=== PATIENT | female | born 1970 | race Caucasian/White ===

== ENCOUNTER 2020-07-27 07:42 | Emergency (ER) | payer SELFPAY ==
[2020-07-27 07:50] VITALS: BP 190/101; PULSE 96; RESP 20; TEMP 36.7; O2SAT 96
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
[2020-07-27] MEDS: TETANUS,DIPHTHERIA,AC PERTUSSIS ADULT 0.5 ML (ADACEL) IM (08:14)
[2020-07-27 08:33] LABS: Alanine Aminotransferase 26 U/L (14-59); Alkaline Phosphatase 87 U/L (46-116); Aspartate Amino Transferase 14 U/L (15-37); Bilirubin Direct < 0.1 mg/dL (0-0.2); Bilirubin,Total 0.3 mg/dL (0.00-1.00); Total Protein 7.9 g/dL (6.4-8.2)
[2020-07-27 08:53] LABS: HIV 1 P24 AG Negative (Negative); HIV 1/2 AB Negative (Negative)
[2020-07-31 03:12] LABS: Hepatitis A Antibody IgM Reactive (Nonreactive); Hepatitis B Core Antibody Nonreactive (Nonreactive); Hepatitis B Surface Antigen Nonreactive (Nonreactive); Hepatitis C Signal to Cutoff 0.01 ratio (<1.00); Hepatitis C Virus Antibody Nonreactive (Nonreactive)
== END 2020-07-27 08:39 | disposition home or self-care (01) ==
PROVIDERS: Emergency Provider Emergency Medicine
DX: S61.232A Puncture wound without foreign body of right middle finger without damage to nail, initial encounter (principal); W45.8XXA Other foreign body or object entering through skin, initial encounter
CPT/HCPCS: 36415; 80074; 80076; 86703; 90471; 90715; 99282; 99283

== ENCOUNTER 2021-09-19 18:32 | Emergency (ER) | payer OTHER, SELFPAY ==
--- NOTE | ~2021-09-19 | XR_ITS ---
EXAM: XR wrist LT min 3V DATE: 09/19/2021 19:03 HISTORY: FELL AND BRACED WITH LEFT ARM. PAIN TO MEDIAL LT WRIST . COMPARISON: None available. FINDINGS: Decreased mineralization. Subtle linear lucencies in the distal radius extending towards t he radiocarpal joint and distal radioulnar joint, with cortical irregularity along the dorsal cortex in the lateral view. No lytic or blastic lesion. Joint spaces are maintained. No erosion or periostea l change. Soft tissues within normal limits. IMPRESSION: Subtle, mildly comminuted, nondisplaced, possibly mildly impacted fracture of the distal left radius. Reviewed, dictated and finalized at location K. IMPRESSION: Subtle, mildly comminuted, nondisplaced, possibly mildly impacted f racture of the distal left radius.
[2021-09-19 18:38] VITALS: BP 154/97; PULSE 96; RESP 20; TEMP 36.7; O2SAT 96
--- NOTE | 2021-09-19 20:59 | ED.UPPEXIN ---
HPI - Extremity Injury (Upper) General Chief Complaint: Extremity Injury, Upper Stated Complaint: L wrist injury Time Seen by Provider: 09/19/21 20:30 History of Present Illness HPI narrative: 50-year-old female presented to the emergency department for evaluation of left wrist pain after having a ground-level fall. Patient states that she fell backward landing on her buttock but did catch her fall with her left wrist. Patient's only complaint is left wrist pain. Related Data Home Medications Medication Instructions Recorded Confirmed No Home Medications 07/27/20 07/27/20 Allergies Allergy/AdvReac Type Severity Reaction Status Date / Time No Known Allergies Allergy Unverified 04/15/16 13:34 Review of Systems Review of Systems: CONSTITUTIONAL: Denies fever, chills, or sweats. EYES: Denies visual changes, redness, or discharge. ENT: Denies rhinorrhea, congestion, sore throat, or otalgia. Denies striking her head denies any loss of consciousness. CARDIOVASCULAR: Denies chest pain, palpitations, or edema. RESPIRATORY: Denies cough or dyspnea. SKIN: Denies rash or itching. MUSCULOSKELETAL: See HPI NEUROLOGIC: Denies headache, numbness, or weakness. PSYCHIATRIC: Denies anxiety or depression. PMFSH Past Medical History Medical History Patient denies medical problems Exam Narrative: APPEARANCE: Well appearing, no pain, no distress, well-nourished. HEAD: normocephalic, atraumatic. EYES: PERRLA/EOMI, conjunctivae clear. RESPIRATORY: Airway patent, respirations nonlabored. Clear to auscultation bilaterally, no rales, rhonchi, wheezing. CARDIOVASCULAR: Regular rate and rhythm without murmurs rubs or gallops. ABDOMINAL: Soft, nontender, nondistended, normal bowel sounds MUSCULOSKELETAL: Left wrist tenderness to palpation. No deformity, no ecchymosis. Strong distal pulses. Strong cap refill. Normal strength and reflexes. No decreased range of motion or tenderness to the left elbow or forearm. NEURO: Alert. Cranial nerves II through XII intact. Good gait. Good coordination SKIN: Warm, dry. Normal Color PSYCHIATRIC: Normal affect/mood. Course Course Emergency Course: Patient was updated on the results of her x-ray revealing a fracture. Patient was placed in splint provided a sling for comfort. Patient was advised on pain medication for home. Patient will provide orthopedic follow-up. All question concerns were addressed. Patient was improved at time of discharge. Vital Signs Vital signs: Vital Signs Temperature 98.0 F 09/19/21 18:38 Pulse Rate 96 09/19/21 18:38 Respiratory Rate 20 09/19/21 18:38 Blood Pressure 154/97 H 09/19/21 18:38 Pulse Oximetry 96 09/19/21 18:38 Oxygen Delivery Room Air 09/19/21 18:38 Temperature 98.0 F 09/19/21 18:38 Pulse Rate 96 09/19/21 18:38 Respiratory Rate 20 09/19/21 18:38 Blood Pressure 154/97 H 09/19/21 18:38 Pulse Oximetry 96 09/19/21 18:38 Oxygen Delivery Room Air 09/19/21 18:38 MDM - Extremity Injury (Upper) Imaging Data Radiologist's impression: Impressions Wrist X-Ray 09/19/21 19:14 IMPRESSION: Subtle, mildly comminuted, nondisplaced, possibly mildly impacted fracture of the distal left radius. Discharge Plan Discharge Clinical Impression: Distal radial fracture Patient Disposition: Home, Self-Care Condition: Stable Instructions: Antibiotic Form, Arm Fracture in Adults (DC), Splint Care (ED) Additional Instructions: Tylenol and ibuprofen for pain control. Splint care as directed. Have close follow-up with orthopedics. If you have any worsening symptoms please call or return to the emergency department. Prescriptions: No Action No Home Medications Follow-up/Referrals: Gabe Rivera MD [Physician] - UNKNOWN,DOCTOR [Non-Staff] -
== END 2021-09-19 21:17 | disposition home or self-care (01) ==
LOC: ANHED 21:14
PROVIDERS: Emergency Provider Emergency Medicine
DX: S52.502A Unspecified fracture of the lower end of left radius, initial encounter for closed fracture (principal); W18.30XA Fall on same level, unspecified, initial encounter
CPT/HCPCS: 29125; 73110; 99284; A4565

== ENCOUNTER 2021-09-26 10:26 | Outpatient (CLI) | payer OTHER, SELFPAY ==
--- NOTE | ~2021-09-26 | CT_ITS ---
EXAMINATION: CT wrist LT wo con DATE: 09/26/2021 10:49 INDICATION: Fracture of distal end of left radius. TECHNIQUE: Computed tomography (CT) of the left wrist was performed without intravenous contrast. Aut omated exposure control and iterative reconstruction technique were employed. The dose-length product was 323.96 mGy-cm. COMPARISON: Left wrist radiographs 09/19/2021 FINDINGS: There is a nondisplaced comminuted fracture of distal radius with involvement of the distal radioulnar joint. There is 6 degrees palmar tilt of the distal articular surface. Ulnar styloid is i ntact. There is mild osteoarthritis of first carpometacarpal joint. IMPRESSION: 1. Nondisplaced comminuted fracture of distal radius. Reviewed, dictated and finalized at location A.
== END 2021-09-26 10:27 | disposition home or self-care (01) ==
LOC: ANHIMG 10:30
PROVIDERS: Visit Provider Orthopaedic Surgery
DX: S52.502D Unspecified fracture of the lower end of left radius, subsequent encounter for closed fracture with routine healing (principal); X58.XXXD Exposure to other specified factors, subsequent encounter
CPT/HCPCS: 73200